=== PATIENT | male | born 2000 ===

== ENCOUNTER → 2023-01-27 | Outpatient (CLI) | payer BC ==
[2023-01-27 11:11] LABS: Basophils # (auto) 0 10 ^3/uL (0-0.2); Basophils % (auto) 0.5 % (0.0-2.0); Eosinophils # (auto) 0 10 ^3/uL (0-0.8); Eosinophils % (auto) 0.7 % (0.0-7.0); Hematocrit 49.8 % (41.0-53.0); Hemoglobin 16.3 g/dL (13.5-17.5); Lymphocytes # (auto) 1.6 10 ^3/uL (0.4-5.4); Lymphocytes % (auto) 35.5 % (10.0-50.0); Mean Corpuscular Hemoglobin 27.9 pg (28.0-32.0); Mean Corpuscular Hgb Conc. 32.8 g/dL (32.0-36.0); Monocytes # (auto) 0.3 10 ^3/uL (0-1.3); Monocytes % (auto) 6.4 % (0.0-12.0); Neutrophils # (auto) 2.6 10 ^3/uL (1.6-8.6); Neutrophils % (auto) 56.9 % (37.0-80.0); Red Blood Cells 5.86 10^6/uL (4.5-5.90); Red Cell Distribution Width 13.1 % (11.8-14.3); White Blood Cell 4.6 10^3/uL (4.4-10.8)
[2023-01-27 11:20] LABS: Urine Bacteria NONE SEEN /hpf (None Seen); Urine Blood TRACE /uL (Negative); Urine Clarity Clear (Clear); Urine Color Yellow (Yellow); Urine Mucus FEW (None Seen); Urine Protein, UAD TRACE (Negative); Urine Specific Gravity 1.025 (1.001-1.035); Urine Urobilinogen Normal (Negative); Urine WBC <1 /hpf (0 - 3); Urine pH 5.5 (5.0-8.0)
[2023-01-27 11:38] LABS: Albumin 4.4 g/dL (3.4-5.0); Calcium 9.5 mg/dL (8.5-10.1); Potassium 3.9 mmol/L (3.5-5.1)
[2023-01-27 11:44] LABS: BUN/Creatinine Ratio 12.8 (10.0-20.0); Total Protein 8.6 g/dL (6.4-8.2)
[2023-01-27 12:02] LABS: Hepatitis B Surface Antibody Negative (Negative)
[2023-01-27 12:40] LABS: Hepatitis A Total Antibody Positive (Negative)
[2023-01-27 13:56] LABS: Hepatitis B Core Total AB Negative (Negative)
[2023-01-27 13:57] LABS: Hepatitis B Surface Antigen Negative (Negative); Hepatitis C Antibody Negative (Negative)
[2023-01-28 07:06] LABS: RPR Non Reactive (Non Reactive)
[2023-01-28 10:06] LABS: Treponema Pallidum Ab LC Non Reactive (Non Reactive)
[2023-01-29 07:06] LABS: Chlamydia Trachomatis, NAA Negative (Negative); Neisseria gonorrhoeae, NAA Negative (Negative)
== END | disposition home or self-care (01) ==
LOC: LAB 10:46
DX: Z00.01 Encounter for general adult medical examination with abnormal findings (principal); Z11.3 Encounter for screening for infections with a predominantly sexual mode of transmission
CPT/HCPCS: 36415; 80053; 80061; 81001; 82306; 84112; 84443; 85025; 86592; 86703; 86704; 86706; 86708; 86803; 87340